=== PATIENT | male | born 1945 | race Caucasian/White ===

== ENCOUNTER 2017-03-07 10:13 | Emergency (ER) | payer OTHER ==
[~2017-03-07] VITALS: Ht 180.3 cm; Wt 67.9 kg
[2017-03-07 10:14] VITALS: BP 132/51
[2017-03-07] MEDS ORDERED: FLOM5CAP PO (10:24)
[2017-03-07] MEDS ORDERED: IBUP-1114 PO (10:25)
[2017-03-07] MEDS ORDERED: MONT10TA2 PO (10:25)
[2017-03-07] MEDS ORDERED: PROAAER10 INH (10:25)
[2017-03-07] MEDS ORDERED: MECL-68 PO (10:25)
[2017-03-07] MEDS ORDERED: NAPR500T3 PO (10:25)
[2017-03-07] MEDS ORDERED: CHOL4PKT PO (10:25)
[2017-03-07] MEDS ORDERED: CLEO300C2 PO (10:52)
== END 2017-03-07 10:57 | disposition home or self-care (01) ==
LOC: M ED 10:43
DX: L03.115 Cellulitis of right lower limb (principal); I49.9 Cardiac arrhythmia, unspecified; N40.0 Benign prostatic hyperplasia without lower urinary tract symptoms; M06.9 Rheumatoid arthritis, unspecified; Z88.0 Allergy status to penicillin; Z79.899 Other long term (current) drug therapy

== ENCOUNTER 2017-05-29 11:00 | Emergency (ER) | payer OTHER ==
[~2017-05-29] VITALS: Ht 180.3 cm; Wt 68.2 kg
[2017-05-29 11:00] VITALS: BP 163/66
[~2017-05-29 11:00] MED LIST: CHOL4PKT PO; CLEO300C2 PO; FLOM5CAP PO; IBUP-1114 PO; MECL-68 PO; MONT10TA2 PO; NAPR500T3 PO; PROAAER10 INH
[2017-05-29] MEDS ORDERED: GINK60CA3 PO (11:13)
[2017-05-29] MEDS ORDERED: VITA500T PO (11:13)
[2017-05-29] MEDS ORDERED: MAGN500C PO (11:13)
[2017-05-29] MEDS ORDERED: ASPI81TA85 PO (11:13)
[2017-05-29] MEDS ORDERED: MULT1CHW39 PO (11:13)
[2017-05-29] MEDS ORDERED: CLEO300C2 PO (11:43)
[2017-05-29] MEDS ORDERED: LIDO1SOL7 MT (11:43)
== END 2017-05-29 11:55 | disposition home or self-care (01) ==
LOC: M ED 11:00
DX: J02.0 Streptococcal pharyngitis (principal); N42.9 Disorder of prostate, unspecified; Z87.19 Personal history of other diseases of the digestive system; Z87.891 Personal history of nicotine dependence; Z87.39 Personal history of other diseases of the musculoskeletal system and connective tissue; Z79.899 Other long term (current) drug therapy; Z79.82 Long term (current) use of aspirin; Z88.0 Allergy status to penicillin

== ENCOUNTER 2018-02-13 10:18 | Emergency (ER) | payer OTHER | END 2018-02-13 11:05 | disposition home or self-care (01) | LOC: M ED 10:18 | DX: S30.861A Insect bite (nonvenomous) of abdominal wall, initial encounter (principal); L02.211 Cutaneous abscess of abdominal wall; W57.XXXA Bitten or stung by nonvenomous insect and other nonvenomous arthropods, initial encounter; Y92.89 Other specified places as the place of occurrence of the external cause; J44.9 Chronic obstructive pulmonary disease, unspecified; N40.0 Benign prostatic hyperplasia without lower urinary tract symptoms; I34.0 Nonrheumatic mitral (valve) insufficiency; Z88.0 Allergy status to penicillin; Z79.899 Other long term (current) drug therapy; Z79.82 Long term (current) use of aspirin; Z87.891 Personal history of nicotine dependence | CPT/HCPCS: 10060 ==

== ENCOUNTER 2019-02-11 11:33 | Emergency (ER) | payer OTHER ==
[~2019-02-11] VITALS: Ht 162.6 cm; Wt 66.7 kg
[~2019-02-11 11:33] MED LIST changes: +ASPI81TA85 PO; +ASTE0.15; +DOXY100C37 PO; +FEXO180T58 PO; +FLOM0.4C39 PO; -FLOM5CAP PO; +GINK60CA3 PO; +LIDO1SOL8 MT; +MAGN500C PO; +MULT200T7 PO; +NAPR-885 PO; -NAPR500T3 PO; +TEST5GEL2 PO; +VITA500T PO
[2019-02-11] MEDS ORDERED: MECL1CHW PO (12:16)
[2019-02-11] MEDS ORDERED: NITR0.4S14 SL (12:16)
[2019-02-11] MEDS ORDERED: CORITAB5 PO (12:16)
[2019-02-11 13:42] VITALS: BP 122/60
== END 2019-02-11 13:43 | disposition home or self-care (01) ==
LOC: M ED 11:33
DX: J02.9 Acute pharyngitis, unspecified (principal); Z87.891 Personal history of nicotine dependence; Z79.51 Long term (current) use of inhaled steroids; Z79.82 Long term (current) use of aspirin; Z79.890 Hormone replacement therapy; Z79.899 Other long term (current) drug therapy; Z88.0 Allergy status to penicillin; Z88.8 Allergy status to other drugs, medicaments and biological substances